=== PATIENT | female | born 1980 | race Hispanic/Latino ===

== ENCOUNTER 2018-04-27 06:49 | Observation (INO) | payer BC ==
[2018-04-22 12:05] LABS: BASOPHILS % (AUTO) 0.8 % (0.0-5.0); EOSINOPHILS % (AUTO) 0.6 % (0.0-8.0); LYMPHOCYTES % (AUTO) 19.8 % (21.0-51.0); MEAN CORPUSCULAR HEMOGLOBIN 30.9 pg (27.0-33.0); MEAN CORPUSCULAR HGB CONC 34.6 g/dL (32.0-36.0); MEAN CORPUSCULAR VOLUME 89.3 fL (79-99); MONOCYTES % (AUTO) 3.8 % (3.0-13.0); PLATELET COUNT (AUTO) 291 K/uL (130-400); RED BLOOD CELL COUNT(AUTO) 4.48 MIL/uL (4.00-5.50); RED CELL DISTRIBUTION WIDTH 13.4 % (11.0-15.5); WHITE BLOOD COUNT (AUTO) 10.8 K/uL (4.8-10.8)
[2018-04-22 12:13] VITALS: BP 131/87
[~2018-04-27] VITALS: Ht 162.6 cm; Wt 81.0 kg
[2018-04-27] VITALS (24 sets, daily range): BP systolic 115–148; BP diastolic 69–86
[2018-04-27] MEDS ORDERED: WATER FOR INJECTION,STERILE 20 ML VIAL IJ ONE (08:00)
[2018-04-27] MEDS ORDERED: LACTATED RINGERS 1000ML 1,000 ML IV SCH (08:00)
[2018-04-27] MEDS ORDERED: CEFAZOLIN SODIUM 1 GM VIAL IVP ONE (08:00)
[2018-04-27] MEDS ORDERED: DEXAMETHASONE SOD PHOSPHATE 10MG/ML 1ML VIAL ONE (09:59)
[2018-04-27] MEDS ORDERED: FENTANYL CITRATE PF 50 MCG/1 ML 2ML VIAL ONE ×2 (09:59→11:55)
[2018-04-27] MEDS ORDERED: LIDOCAINE PF 2% 5ML ABBOJECT ONE (09:59)
[2018-04-27] MEDS ORDERED: ONDANSETRON HCL 4 MG/2 ML VIAL ONE ×3 (09:59→11:47)
[2018-04-27] MEDS ORDERED: PROPOFOL 10 MG/ML 20ML VIAL IV ONE (09:59)
[2018-04-27] MEDS ORDERED: MIDAZOLAM HCL 1 MG/ML 2ML VIAL ONE (09:59)
[2018-04-27] MEDS ORDERED: ROCURONIUM BROMIDE 10MG/1ML 5ML VL ONE (10:13)
[2018-04-27] MEDS ORDERED: GLYCOPYRROLATE 0.2 MG/ML 5 ML VIAL ONE (11:55)
[2018-04-27] MEDS ORDERED: NEOSTIGMINE METHYLSULFATE 1MG/ML IV ONE (11:55)
[2018-04-27] MEDS ORDERED: MEPERIDINE-PF 25 MG/ML SYG ONE ×2 (12:16→12:25)
[2018-04-27] MEDS ORDERED: IBUPROFEN 600 MG TABLET PO PRN (13:45)
[2018-04-27] MEDS ORDERED: SIMETHICONE 80 MG TAB.CHEW PO PRN (13:45)
[2018-04-27] MEDS ORDERED: DOCUSATE SODIUM 100 MG CAP PO PRN (13:45)
[2018-04-27] MEDS ORDERED: MEPERIDINE-PF 75 MG/ML SYG IM PRN (13:45)
[2018-04-27] MEDS ORDERED: BISACODYL 10 MG SUPP.RECT RC PRN (13:45)
[2018-04-27] MEDS ORDERED: PROMETHAZINE HCL 25 MG/ML 1ML AMPULE IM PRN ×2 (13:45)
[2018-04-27] MEDS: DEXTROSE 5 %-0.45 % NACL 1,000 ML IV PRN ×2 (14:39→22:40)
[2018-04-27] MEDS: ACETAMINOPHEN-CODEINE 300/30MG TAB PO PRN ×2 (17:02→21:03)
[2018-04-28 00:14] VITALS: BP 130/66
[2018-04-28] MEDS ORDERED: MEPERIDINE-PF 50 MG/ML SYG ONE (02:06)
[2018-04-28] MEDS ORDERED: MEPERIDINE-PF 25 MG/ML SYG ONE (02:06)
[2018-04-28 04:56] VITALS: BP 103/61
[2018-04-28 05:46] LABS: HEMATOCRIT 36.4 % (36-48); MEAN CORPUSCULAR HGB CONC 34.7 g/dL (32.0-36.0); MEAN CORPUSCULAR VOLUME 89.4 fL (79-99); PLATELET COUNT (AUTO) 315 K/uL (130-400); RED BLOOD CELL COUNT(AUTO) 4.07 MIL/uL (4.00-5.50); RED CELL DISTRIBUTION WIDTH 12.8 % (11.0-15.5); WHITE BLOOD COUNT (AUTO) 16.1 K/uL (4.8-10.8)
[2018-04-28] MEDS: DEXTROSE 5 %-0.45 % NACL 1,000 ML IV PRN (06:46)
[2018-04-28 07:34] VITALS: BP 120/72
[2018-04-28] MEDS ORDERED: IBUPROFEN 800 MG TAB PO PRN (08:00)
[2018-04-28] MEDS ORDERED: BISACODYL 10 MG SUPP.RECT RC PRN (08:00)
[2018-04-28] MEDS ORDERED: HYDROCODONE/ACETAMINOPHEN 5/325 MG TAB PO PRN (08:00)
[2018-04-28] MEDS ORDERED: DOCUSATE SODIUM 100 MG CAP PO PRN (08:00)
[2018-04-28] MEDS ORDERED: SIMETHICONE 80 MG TAB.CHEW PO PRN (08:00)
[2018-04-28] MEDS ORDERED: ACETAMINOPHEN-CODEINE 300/30MG TAB PO PRN (08:00)
[2018-04-28 12:02] VITALS: BP 121/71
== END 2018-04-28 14:20 | disposition home or self-care (01) ==
LOC: DAH 06:49 → DAHIP 06:50 → WSH 13:25
PROVIDERS: ADMIT Obstetrics & Gynecology; ATTEND Obstetrics & Gynecology
DX: N92.1 Excessive and frequent menstruation with irregular cycle (principal); D25.9 Leiomyoma of uterus, unspecified; N73.6 Female pelvic peritoneal adhesions (postinfective); Z90.710 Acquired absence of both cervix and uterus
CPT/HCPCS: 36415 ×3; 58552; 84703; 85025; 85027; 86850 ×2; 86900 ×2; 86901 ×2; 88307; 96372 ×2; A4215; A4218; A4351; A4510; A4600; A4649 ×3; C1769 ×2; G0378 ×31; J0690; J1100; J2001; J2175 ×6; J2250; J2405 ×3; J2550 ×2; J2704; J2710; J3010 ×2; J3490 ×2; J7030; J7120 ×2

== ENCOUNTER 2022-06-17 05:54 | Day surgery (SDC) | payer BC ==
[2022-06-16 15:56] VITALS: BP 120/90
[2022-06-16 16:15] LABS: BASOPHILS % (AUTO) 0.4 % (0.0-5.0); HEMATOCRIT 38.9 % (36-48); LYMPHOCYTES % (AUTO) 20.3 % (21.0-51.0); MEAN CORPUSCULAR HEMOGLOBIN 30.9 pg (27.0-33.0); MEAN CORPUSCULAR HGB CONC 33.4 g/dL (32.0-36.0); MEAN CORPUSCULAR VOLUME 92.4 fL (79-99); MONOCYTES % (AUTO) 4.2 % (3.0-13.0); NEUTROPHILS % (AUTO) 73.7 % (40.0-77.0); PLATELET COUNT (AUTO) 290 K/uL (130-400); RED BLOOD CELL COUNT(AUTO) 4.21 MIL/uL (4.00-5.50); RED CELL DISTRIBUTION WIDTH 12.4 % (11.0-15.5); WHITE BLOOD COUNT (AUTO) 10.4 K/uL (4.8-10.8)
[2022-06-16 16:18] LABS: APPEARANCE,URINE Cloudy (CLEAR); BILIRUBIN,URINE Negative (NEGATIVE); COLOR,URINE Yellow (YELLOW); GLUCOSE, URINE (UA) Negative (NEGATIVE); KETONES,URINE Negative (NEGATIVE); LEUKOCYTE ESTERASE ,URINE Negative (NEGATIVE); NITRATE,URINE Negative (NEGATIVE); OCCULT BLOOD,URINE Negative (NEGATIVE); PH,URINE 5.5 (5.0-8.0); PROTEIN,URINE Negative (NEGATIVE); UROBILINOGEN,URINE 0.2 mg/dL (0.2-1.0)
[2022-06-16 16:31] LABS: BACTERIA,URINE Few /HPF (None Seen); MUCUS,URINE Few LPF (None Seen); RBC,URINE 0-1 /HPF (0-1); SQUAMOUS EPITHELIAL CELL,UR Moderate /HPF (0-2); WBC,URINE 0-1 /HPF (0-1)
[2022-06-16 16:56] LABS: INR 0.95 (0.85-1.15); PROTHROMBIN TIME 10.4 SEC (9.6-11.6)
[2022-06-16 16:57] LABS: PARTIAL THROMBOPLASTIN TIME 27.6 SEC (26.3-35.5)
[2022-06-17] VITALS (14 sets, daily range): BP systolic 108–146; BP diastolic 62–83
[~2022-06-17] VITALS: Ht 157.5 cm; Wt 90.2 kg
[~2022-06-17 05:54] MED LIST: VITAD50000 PO
[2022-06-17] MEDS ORDERED: LACTATED RINGERS 1000ML 1,000 ML IV ONE (07:43)
[2022-06-17] MEDS ORDERED: MIDAZOLAM HCL 1 MG/ML 2ML VIAL ONE (11:03)
[2022-06-17] MEDS ORDERED: ROCURONIUM 10MG/1ML SYR 10 MG/ML ML ONE (11:06)
[2022-06-17] MEDS ORDERED: PROPOFOL 10 MG/ML 20ML VIAL IV ONE (11:06)
[2022-06-17] MEDS ORDERED: FENTANYL CITRATE PF 50 MCG/1 ML 2ML VIAL ONE ×2 (11:07→12:09)
[2022-06-17] MEDS ORDERED: ONDANSETRON 4MG INJ ONE (11:45)
[2022-06-17] MEDS ORDERED: BACITRACIN 28.4 GM OINT TP ONE ×2 (12:13→12:22)
[2022-06-17] MEDS ORDERED: NEOSTIGMINE 5MG/5ML SYR IV ONE (12:16)
[2022-06-17] MEDS ORDERED: GLYCOPYRROLATE 1 MG/5 ML SYRINGE ONE (12:16)
[2022-06-17] MEDS ORDERED: MEPERIDINE-PF 25 MG/ML SYG ONE ×2 (12:35→12:49)
== END 2022-06-17 13:50 | disposition home or self-care (01) ==
LOC: SUH 05:54 → DAH 05:54 → SUH 13:50
PROVIDERS: ATTEND Obstetrics & Gynecology
DX: N75.1 Abscess of Bartholin's gland (principal); K21.9 Gastro-esophageal reflux disease without esophagitis; E66.9 Obesity, unspecified; Z79.01 Long term (current) use of anticoagulants; Z79.899 Other long term (current) drug therapy; Z90.710 Acquired absence of both cervix and uterus; Z98.890 Other specified postprocedural states; Z80.0 Family history of malignant neoplasm of digestive organs; Z83.3 Family history of diabetes mellitus; Z80.8 Family history of malignant neoplasm of other organs or systems; Z87.891 Personal history of nicotine dependence; Z72.89 Other problems related to lifestyle; Z68.36 Body mass index [BMI] 36.0-36.9, adult
CPT/HCPCS: 85025; 85610; 85730; 86850; 86900; 86901; 87426; 81001; 36415; 56740; A6260; A4663; A4351; J7120; J3010 ×2; J3490; J2710; J2250; J2704; J2405; J2175 ×2; A4215; A4223; A4222; A4221